=== PATIENT | female | born 1990 | race Caucasian/White ===

== ENCOUNTER → 2016-08-03 | Outpatient (CLI) | payer OTHER ==
--- NOTE | 2016-08-03 15:57 | US ---
Transabdominal and Endovaginal Pelvic Ultrasound Clinical History: 26-year-old female with an intrauterine device and a prior history of a hemorrhagic left ovarian cyst, presenting for follow-up. TECHNIQUE: A curvilinear 5 MHz transducer was initially used to sonographically evaluate the pelvis, although the urinary bladder was only partially distended. To better assess the uterine architecture and the adnexal structures, endovaginal pelvic sonography was also performed. Color and spectral Dopp ler were used. Coronal reconstructed imaging through the endometrium was also provided. ICD 10 Diagnostic Code: N83.202. Comparison: Pelvic sonography, dated June 19, 2016. Findings: Transabdominal Pelvic Sonography: The uterus is normal in size, shape, and position. An echogenic in trauterine device is present. The right and left ovaries are identified and there is a complex-appear ing left ovarian cystic mass which will be better assessed endovaginally. There is no free fluid. Endovaginal Pelvic Sonography: The uterus measures 9.1 x 4.1 x 4.4 cm. The T-shaped intrauterine ana ce is appropriately positioned with the sidearms deployed at the fundal endometrial level. There is a n anterior mid-body intramural leiomyoma again noted, currently measuring 1.6 x 1.7 x 1.6 cm. The end ometrium stripe measures 3.0 mm. The right ovary measures 3.9 x 2.5 x 1.7 cm, and contains some tiny follicles. Intraovarian vascular flow is documented, with a resistive index of 0.58. The left ovary m easures 3.6 x 3.7 x 4.7 cm, and contains a complex partially-septated hypoechoic cyst measuring 4.4 x 2.7 x 3.4 cm. On the previous study, this measured 2.3 x 1.7 x 1.1 cm. Normal arterial blood flow i s documented to the left ovary, with a resistive index of 0.60-0.66. There is no free fluid in the pe lvic cul-de-sac. Impression: 1. Appropriate positioning of the intrauterine device. 2. There is a 1.7 cm anterior mid-uterine body intramural fibroid. 3. There has been an interval increase in the size of the complex-appearing left ovarian cystic mass, now measuring up to 4.4 cm (compared with a prior measurement of 2.3 cm on June 19, 2016). There is no evidence of torsion or free fluid. This left adnexal mass could represent a complex hemorrhagi c cyst or an endometrioma, although other etiologies cannot be excluded.
== END ==
LOC: BRMIMAGING 13:54
PROVIDERS: ATTEND Advanced Practice Midwife
DX: D25.1 Intramural leiomyoma of uterus (principal); N83.202 Unspecified ovarian cyst, left side; Z30.431 Encounter for routine checking of intrauterine contraceptive device
CPT/HCPCS: 76856-PO

== ENCOUNTER → 2016-11-02 | Outpatient (CLI) | payer OTHER | LOC: CIMAGING 15:00 | PROVIDERS: ATTEND Obstetrics & Gynecology Gynecology | DX: N83.292 Other ovarian cyst, left side (principal); D25.1 Intramural leiomyoma of uterus | CPT/HCPCS: 76830-PO ==